=== PATIENT | male | born 1985 | race Caucasian/White ===

== ENCOUNTER 2018-05-24 11:01 | Inpatient (IN) | payer BC ==
[~2018-05-24 11:01] MED LIST: DESFLURANE 15 MIN
[2018-05-24] MEDS: POLYMYXIN/BACITRACIN 1L IRRIG (11:22)
[2018-05-24] MEDS: THROMBIN 5000 UNIT VIAL (11:22)
[2018-05-24] MEDS: BUPIVACAINE 0.5%/EPI (SDV) 30 ML INJ (11:23)
[2018-05-24] MEDS ORDERED: HYDROmorphONE 2 MG/ML SYG (11:47)
[2018-05-24] MEDS ORDERED: MIDAZOLAM 1 MG/ML 2 ML INJ (11:47)
[2018-05-24] MEDS ORDERED: HYDROmorphONE 1 MG/5 ML IV SYRINGE IV ×2 (12:00→16:43)
[2018-05-24] MEDS ORDERED: MEPERIDINE 25 MG INJ IV (12:00)
[2018-05-24] MEDS ORDERED: ONDANSETRON 4 MG INJ IV (12:00)
[2018-05-24] MEDS: CEFAZOLIN 2 GM/50 ML (PMX) 50 ML IVPB (12:00)
[2018-05-24] MEDS: LACTATED RINGER'S 1,000 ML IV* (12:00)
[2018-05-24] MEDS ORDERED: DIPHENHYDRAMINE 50 MG INJ IV (12:00)
[2018-05-24] MEDS ORDERED: CEFAZOLIN 1 GM INJ (12:07)
[2018-05-24] MEDS ORDERED: HYDROCODONE/APAP (10/325) TAB PO (12:30)
[2018-05-24] MEDS ORDERED: DIPHENHYDRAMINE 25 MG CAP PO (12:30)
[2018-05-24] MEDS ORDERED: NALOXONE (0.4 MG/ML) INJ IV (12:30)
[2018-05-24] MEDS ORDERED: BISACODYL 10 MG SUPP PR (12:30)
[2018-05-24] MEDS ORDERED: AL HYDROX/MG HYDROX/SIMETH 30 ML CUP PO (12:30)
[2018-05-24] MEDS ORDERED: ACETAMINOPHEN 325 MG TAB PO (12:30)
[2018-05-24] MEDS ORDERED: CEPASTAT LOZENGE MT (12:30)
[2018-05-24] MEDS ORDERED: METOCLOPRAMIDE 10 MG INJ (12:57)
[2018-05-24] MEDS ORDERED: ROCURONIUM 50 MG INJ ×3 (12:57→13:21)
[2018-05-24] MEDS ORDERED: PROPOFOL 20 ML (12:57)
[2018-05-24] MEDS ORDERED: ONDANSETRON 4 MG INJ (12:57)
[2018-05-24] MEDS: HEPARIN 1000 UNITS/ML 10 ML INJ (13:06)
[2018-05-24] MEDS: CA CHLORIDE (GM) 10% 10 ML INJ (14:09)
[2018-05-24] MEDS ORDERED: THROMBIN 5000 UNIT VIAL (14:09)
[2018-05-24] MEDS: SURGIFOAM POWDER 1 GM KIT (14:14)
[2018-05-24] MEDS ORDERED: GLYCOPYRROLATE 0.4 MG INJ (15:57)
[2018-05-24] MEDS ORDERED: NEOSTIGMINE 3 MG/3 ML SYRINGE (15:57)
[2018-05-24] MEDS ORDERED: MEPERIDINE 25 MG INJ (16:29)
[2018-05-24] MEDS: MEPERIDINE 25 MG INJ IV (16:47)
[2018-05-24] MEDS: DIPHENHYDRAMINE 50 MG INJ IV (16:48)
[2018-05-24] MEDS: MEPERIDINE 25 MG INJ IM (16:56)
[2018-05-24] MEDS: HYDROmorphONE 1 MG/5 ML IV SYRINGE IV ×2 (16:58→17:08)
[2018-05-24] MEDS: HYDROmorphONE 0.2 MG/ML PCA IV (17:05)
[2018-05-24] MEDS: CEFAZOLIN 1 GM/50 ML (PMX) 50 ML IVPB ×2 (17:34→20:56)
[2018-05-24] MEDS: D5W-0.45 NACL + KCL 20 MEQ 1,000 ML IV (20:56)
[2018-05-24] MEDS: LITHIUM CARBONATE 300 MG CAP PO (20:57)
[2018-05-24] MEDS: clonAZEPAM 0.5 MG TAB PO (20:57)
[2018-05-24] MEDS: HYDROmorphONE 0.5 MG/0.5 ML SYG IV (21:09)
[2018-05-25] MEDS: D5W-0.45 NACL + KCL 20 MEQ 1,000 ML IV ×3 (00:30→16:02)
[2018-05-25] MEDS: HYDROmorphONE 0.5 MG/0.5 ML SYG IV ×3 (03:06→08:02)
[2018-05-25 04:57] LABS: ADD MAN DIFF? NO
[2018-05-25 05:09] LABS: BASOPHILS % 0.2 % (0.0-2.0); EOSINOPHILS # 0.1 10^3/ul (0.0-0.5); EOSINOPHILS % 1.3 % (0.0-7.0); HEMATOCRIT 32.7 % (42.0-52.0); LYMPHOCYTES # 1.6 10^3/ul (0.8-2.9); MEAN CORPUSCULAR HGB CONC 33.6 g/dl (32.0-37.0); MEAN CORPUSCULAR VOLUME 89.1 fl (82.0-101.0); MEAN PLATELET VOLUME 10.9 fl (7.4-10.4); MONOCYTE # 0.6 10^3/ul (0.3-0.9); MONOCYTES % 6.7 % (0.0-11.0); NEUTROPHIL # 6.6 10^3/ul (1.6-7.5); NEUTROPHILS % 73.6 % (39.0-77.0); PLATELET COUNT 144 10^3/UL (140-415); RED BLOOD COUNT 3.67 10^6/ul (4.70-6.10); RED CELL DISTRIBUTION WIDTH 12.1 % (11.5-14.5)
[2018-05-25 05:43] LABS: ANION GAP 5 (5-13); BLOOD UREA NITROGEN 10 mg/dl (7-20); CALCIUM 9.4 mg/dl (8.4-10.2); CARBON DIOXIDE 31 mmol/L (21-31); CHLORIDE 104 mmol/L (97-110); CREATININE 0.89 mg/dl (0.61-1.24); Estimated GFR > 60 mL/min (>60); GLUCOSE 104 mg/dl (70-220); MAGNESIUM 1.8 mg/dl (1.7-2.5); POTASSIUM 4.3 mmol/L (3.5-5.1); SODIUM 140 mmol/L (135-144)
[2018-05-25] MEDS: CEFAZOLIN 1 GM/50 ML (PMX) 50 ML IVPB (06:31)
[2018-05-25] MEDS: CYCLOBENZAPRINE 10 MG TAB PO (08:01)
[2018-05-25] MEDS: ONDANSETRON 4 MG INJ IV ×2 (08:34→19:29)
[2018-05-25] MEDS: MODAFINIL 200 MG TAB PO (09:00)
[2018-05-25] MEDS: DOCUSATE SODIUM 100 MG CAP PO ×2 (09:14→20:09)
[2018-05-25] MEDS: LITHIUM CARBONATE 300 MG CAP PO ×2 (09:14→21:19)
[2018-05-25] MEDS: KETOROLAC 30 MG INJ IV (09:15)
[2018-05-25] MEDS: HYDROmorphONE 0.2 MG/ML PCA IV ×2 (10:57→19:52)
[2018-05-25] MEDS: clonAZEPAM 0.5 MG TAB PO (20:09)
[2018-05-26] MEDS: D5W-0.45 NACL + KCL 20 MEQ 1,000 ML IV (01:43)
[2018-05-26] MEDS: HYDROmorphONE 0.2 MG/ML PCA IV (01:47)
[2018-05-26 05:03] LABS: ADD MAN DIFF? NO
[2018-05-26 05:12] LABS: WHITE BLOOD COUNT 11.1 10^3/ul (4.8-10.8)
[2018-05-26 05:12] LABS: BASOPHILS % 0.2 % (0.0-2.0); EOSINOPHILS # 0.1 10^3/ul (0.0-0.5); HEMATOCRIT 35.8 % (42.0-52.0); HEMOGLOBIN 11.7 g/dl (14.0-18.0); LYMPHOCYTES # 1.2 10^3/ul (0.8-2.9); LYMPHOCYTES % 10.5 % (15.0-51.0); MEAN CORPUSCULAR HEMOGLOBIN 29.5 pg (29.0-33.0); MEAN CORPUSCULAR HGB CONC 32.7 g/dl (32.0-37.0); MEAN CORPUSCULAR VOLUME 90.2 fl (82.0-101.0); MEAN PLATELET VOLUME 10.6 fl (7.4-10.4); MONOCYTE # 0.8 10^3/ul (0.3-0.9); MONOCYTES % 7.4 % (0.0-11.0); NEUTROPHILS % 80.5 % (39.0-77.0); PLATELET COUNT 131 10^3/UL (140-415); RED BLOOD COUNT 3.97 10^6/ul (4.70-6.10); RED CELL DISTRIBUTION WIDTH 11.9 % (11.5-14.5)
[2018-05-26 05:36] LABS: ANION GAP 3 (5-13); BLOOD UREA NITROGEN 7 mg/dl (7-20); CALCIUM 9.7 mg/dl (8.4-10.2); CARBON DIOXIDE 29 mmol/L (21-31); CHLORIDE 104 mmol/L (97-110); CREATININE 0.87 mg/dl (0.61-1.24); Estimated GFR > 60 mL/min (>60); GLUCOSE 125 mg/dl (70-220); MAGNESIUM 1.8 mg/dl (1.7-2.5); POTASSIUM 4.1 mmol/L (3.5-5.1); SODIUM 136 mmol/L (135-144)
[2018-05-26] MEDS: MODAFINIL 200 MG TAB PO (09:00)
[2018-05-26] MEDS: LITHIUM CARBONATE 300 MG CAP PO (09:58)
[2018-05-26] MEDS: DOCUSATE SODIUM 100 MG CAP PO (09:59)
[2018-05-26] MEDS: CYCLOBENZAPRINE 10 MG TAB PO ×2 (10:06→14:20)
[2018-05-26] MEDS: HYDROCODONE/APAP (10/325) TAB PO ×2 (10:06→14:20)
[2018-05-26 15:13] LABS: ADD UMIC YES; UR ASCORBIC ACID NEGATIVE (NEGATIVE); UR BACTERIA FEW /HPF (NONE SEEN); UR BILIRUBIN (Dip) NEGATIVE (NEGATIVE); UR BLOOD (Dip) 2+ mg/dL (NEGATIVE); UR CLARITY CLEAR (CLEAR); UR COLOR STRAW (YELLOW); UR GLUCOSE (Dip) NEGATIVE (NEGATIVE); UR KETONES (Dip) NEGATIVE (NEGATIVE); UR LEUKOCYTE ESTERASE (Dip) 2+ Leu/ul (NEGATIVE); UR NITRITE (Dip) NEGATIVE (NEGATIVE); UR RBC 5 /HPF (0-5); UR SPECIFIC GRAVITY (Dip) 1.004 (1.003-1.030); UR TOTAL PROTEIN (Dip) NEGATIVE (NEGATIVE); UR UROBILINOGEN (Dip) NEGATIVE (NEGATIVE); UR WBC 39 /HPF (0-5)
== END 2018-05-26 15:20 | DRG 460 ==
LOC: REC 11:01 → MS1 18:13
PROC: 0SG30AJ Fusion of Lumbosacral Joint with Interbody Fusion Device, Posterior Approach, Anterior Column, Open Approach (ICD-10-PCS; principal; 2018-05-24 11:30)
PROC: 0ST40ZZ Resection of Lumbosacral Disc, Open Approach (ICD-10-PCS; 2018-05-24 11:30)
PROC: 01NB0ZZ Release Lumbar Nerve, Open Approach (ICD-10-PCS; 2018-05-24 11:30)
PROC: 4A11X4G Monitoring of Peripheral Nervous Electrical Activity, Intraoperative, External Approach (ICD-10-PCS; 2018-05-24 11:30)
PROC: 0HB6XZZ Excision of Back Skin, External Approach (ICD-10-PCS; 2018-05-24 11:30)
DX: M51.17 Intervertebral disc disorders with radiculopathy, lumbosacral region (principal); M48.07 Spinal stenosis, lumbosacral region; L90.5 Scar conditions and fibrosis of skin; L91.0 Hypertrophic scar; F31.9 Bipolar disorder, unspecified; F41.9 Anxiety disorder, unspecified
CPT/HCPCS: 72100; 80048; 81001; 83735; 85025; 86999; 87086; 88304; 97116; 97162; 97530

== ENCOUNTER 2018-05-26 15:27 | Inpatient (IN) | payer BC ==
[2018-05-26] MEDS ORDERED: CEPASTAT LOZENGE MT (16:00)
[2018-05-26] MEDS ORDERED: DIPHENHYDRAMINE 50 MG INJ IV (16:00)
[2018-05-26] MEDS ORDERED: NALOXONE (0.4 MG/ML) INJ IV (16:00)
[2018-05-26] MEDS ORDERED: ONDANSETRON 4 MG INJ IV (16:00)
[2018-05-26 16:35] LABS: ADD UMIC NO; UR ASCORBIC ACID NEGATIVE (NEGATIVE); UR BILIRUBIN (Dip) NEGATIVE (NEGATIVE); UR BLOOD (Dip) NEGATIVE (NEGATIVE); UR CLARITY CLEAR (CLEAR); UR COLOR STRAW (YELLOW); UR GLUCOSE (Dip) NEGATIVE (NEGATIVE); UR KETONES (Dip) NEGATIVE (NEGATIVE); UR LEUKOCYTE ESTERASE (Dip) NEGATIVE Leu/ul (NEGATIVE); UR NITRITE (Dip) NEGATIVE (NEGATIVE); UR SPECIFIC GRAVITY (Dip) 1.003 (1.003-1.030); UR TOTAL PROTEIN (Dip) NEGATIVE (NEGATIVE); UR UROBILINOGEN (Dip) NEGATIVE (NEGATIVE)
[2018-05-26] MEDS: HYDROCODONE/APAP (10/325) TAB PO ×2 (16:40→20:55)
[2018-05-26] MEDS: CYCLOBENZAPRINE 10 MG TAB PO (16:42)
[2018-05-26] MEDS: LITHIUM CARBONATE 300 MG CAP PO (20:54)
[2018-05-26] MEDS: DOCUSATE SODIUM 100 MG CAP PO (20:55)
[2018-05-26] MEDS: SENNA TAB PO (20:55)
[2018-05-26] MEDS: clonAZEPAM 0.5 MG TAB PO (22:06)
[2018-05-27] MEDS: HYDROCODONE/APAP (10/325) TAB PO ×2 (01:44→07:42)
[2018-05-27] MEDS: CYCLOBENZAPRINE 10 MG TAB PO ×3 (01:44→16:31)
[2018-05-27 07:24] LABS: ADD MAN DIFF? NO
[2018-05-27 07:26] LABS: WHITE BLOOD COUNT 11.4 10^3/ul (4.8-10.8)
[2018-05-27 07:26] LABS: BASOPHILS % 0.3 % (0.0-2.0); EOSINOPHILS # 0.1 10^3/ul (0.0-0.5); HEMATOCRIT 35.6 % (42.0-52.0); HEMOGLOBIN 11.7 g/dl (14.0-18.0); LYMPHOCYTES # 1.4 10^3/ul (0.8-2.9); LYMPHOCYTES % 12.2 % (15.0-51.0); MEAN CORPUSCULAR HEMOGLOBIN 29.6 pg (29.0-33.0); MEAN CORPUSCULAR HGB CONC 32.9 g/dl (32.0-37.0); MEAN CORPUSCULAR VOLUME 90.1 fl (82.0-101.0); MEAN PLATELET VOLUME 10.3 fl (7.4-10.4); MONOCYTE # 0.7 10^3/ul (0.3-0.9); MONOCYTES % 6.2 % (0.0-11.0); NEUTROPHIL # 9.2 10^3/ul (1.6-7.5); PLATELET COUNT 136 10^3/UL (140-415); POSITIVE DIFF @See below; RED BLOOD COUNT 3.95 10^6/ul (4.70-6.10); RED CELL DISTRIBUTION WIDTH 11.8 % (11.5-14.5)
[2018-05-27 07:44] LABS: ALANINE AMINOTRANSFERASE 26 IU/L (13-69); ALBUMIN 3.9 g/dl (3.3-4.9); ALKALINE PHOSPHATASE 84 IU/L (42-121); ANION GAP 6 (5-13); ASPARTATE AMINO TRANSFERASE 25 IU/L (15-46); BILIRUBIN,INDIRECT 0.6 mg/dl (0-1.1); BILIRUBIN,TOTAL 0.6 mg/dl (0.2-1.3); BLOOD UREA NITROGEN 9 mg/dl (7-20); CALCIUM 9.9 mg/dl (8.4-10.2); CARBON DIOXIDE 28 mmol/L (21-31); CHLORIDE 102 mmol/L (97-110); CREATININE 0.92 mg/dl (0.61-1.24); Estimated GFR > 60 mL/min (>60); GLUCOSE 91 mg/dl (70-220); SODIUM 136 mmol/L (135-144); TOTAL PROTEIN 6.9 g/dl (6.1-8.1)
[2018-05-27] MEDS: MODAFINIL 200 MG TAB PO (09:31)
[2018-05-27] MEDS: DOCUSATE SODIUM 100 MG CAP PO ×2 (09:31→21:00)
[2018-05-27] MEDS: LITHIUM CARBONATE 300 MG CAP PO ×3 (09:31→20:34)
[2018-05-27 10:22] LABS: LITHIUM 1.5 mmol/L (0.6-1.3)
[2018-05-27] MEDS: OXYCODONE/ACETAMINOPHEN (10/325) TAB PO ×3 (12:55→20:34)
[2018-05-27] MEDS: clonAZEPAM 0.5 MG TAB PO (20:38)
[2018-05-27] MEDS: SENNA TAB PO (21:00)
[2018-05-28] MEDS: OXYCODONE/ACETAMINOPHEN (10/325) TAB PO ×3 (06:26→18:28)
[2018-05-28] MEDS: CYCLOBENZAPRINE 10 MG TAB PO ×3 (06:26→18:27)
[2018-05-28] MEDS: DOCUSATE SODIUM 100 MG CAP PO ×2 (09:05→20:13)
[2018-05-28] MEDS: LITHIUM CARBONATE 300 MG CAP PO ×2 (09:06→20:12)
[2018-05-28] MEDS: MODAFINIL 200 MG TAB PO (09:08)
[2018-05-28] MEDS: clonAZEPAM 0.5 MG TAB PO (20:12)
[2018-05-28] MEDS: SENNA TAB PO (20:12)
[2018-05-29] MEDS: MAGNESIUM HYDROXIDE 30ML CUP PO (06:45)
[2018-05-29 07:15] LABS: ADD MAN DIFF? NO
[2018-05-29 07:23] LABS: WHITE BLOOD COUNT 6.6 10^3/ul (4.8-10.8)
[2018-05-29 07:23] LABS: BASOPHILS % 0.2 % (0.0-2.0); EOSINOPHILS # 0.2 10^3/ul (0.0-0.5); EOSINOPHILS % 2.9 % (0.0-7.0); HEMATOCRIT 34.6 % (42.0-52.0); HEMOGLOBIN 11.5 g/dl (14.0-18.0); LYMPHOCYTES # 1.5 10^3/ul (0.8-2.9); LYMPHOCYTES % 21.9 % (15.0-51.0); MEAN CORPUSCULAR HEMOGLOBIN 29.1 pg (29.0-33.0); MEAN CORPUSCULAR HGB CONC 33.2 g/dl (32.0-37.0); MEAN CORPUSCULAR VOLUME 87.6 fl (82.0-101.0); MEAN PLATELET VOLUME 10.5 fl (7.4-10.4); MONOCYTE # 0.5 10^3/ul (0.3-0.9); MONOCYTES % 7.7 % (0.0-11.0); NEUTROPHIL # 4.4 10^3/ul (1.6-7.5); PLATELET COUNT 206 10^3/UL (140-415); RED BLOOD COUNT 3.95 10^6/ul (4.70-6.10); RED CELL DISTRIBUTION WIDTH 11.4 % (11.5-14.5)
[2018-05-29] MEDS: OXYCODONE/ACETAMINOPHEN (10/325) TAB PO ×3 (07:50→20:50)
[2018-05-29] MEDS: CYCLOBENZAPRINE 10 MG TAB PO ×3 (07:50→20:50)
[2018-05-29 07:51] LABS: ANION GAP 12 (5-13); BLOOD UREA NITROGEN 11 mg/dl (7-20); CALCIUM 10.2 mg/dl (8.4-10.2); CARBON DIOXIDE 30 mmol/L (21-31); CHLORIDE 99 mmol/L (97-110); CREATININE 0.87 mg/dl (0.61-1.24); Estimated GFR > 60 mL/min (>60); GLUCOSE 86 mg/dl (70-220); SODIUM 141 mmol/L (135-144)
[2018-05-29] MEDS: LITHIUM CARBONATE 300 MG CAP PO ×2 (08:07→20:49)
[2018-05-29] MEDS: DOCUSATE SODIUM 100 MG CAP PO ×2 (08:08→21:00)
[2018-05-29] MEDS: MODAFINIL 200 MG TAB PO (08:08)
[2018-05-29] MEDS: LACTULOSE 30ML CUP PO (13:11)
[2018-05-29] MEDS: clonAZEPAM 0.5 MG TAB PO (20:49)
[2018-05-29] MEDS: SENNA TAB PO (21:00)
[2018-05-30] MEDS: OXYCODONE/ACETAMINOPHEN (10/325) TAB PO ×4 (04:59→21:14)
[2018-05-30] MEDS: MAGNESIUM HYDROXIDE 30ML CUP PO (08:13)
[2018-05-30] MEDS: LITHIUM CARBONATE 300 MG CAP PO ×2 (08:14→21:30)
[2018-05-30] MEDS: MODAFINIL 200 MG TAB PO (08:14)
[2018-05-30] MEDS: DOCUSATE SODIUM 100 MG CAP PO ×2 (08:14→21:14)
[2018-05-30] MEDS: DOCOSANOL 2 GM CREAM TOP ×2 (13:33→21:14)
[2018-05-30] MEDS: CYCLOBENZAPRINE 10 MG TAB PO ×2 (15:43→21:13)
[2018-05-30] MEDS: clonAZEPAM 0.5 MG TAB PO (21:13)
[2018-05-30] MEDS: SENNA TAB PO (21:14)
[2018-05-31 06:41] LABS: ADD MAN DIFF? NO
[2018-05-31 06:43] LABS: WHITE BLOOD COUNT 5.8 10^3/ul (4.8-10.8)
[2018-05-31 06:43] LABS: BASOPHILS % 0.3 % (0.0-2.0); EOSINOPHILS # 0.3 10^3/ul (0.0-0.5); HEMATOCRIT 34.1 % (42.0-52.0); HEMOGLOBIN 11.1 g/dl (14.0-18.0); LYMPHOCYTES # 2.1 10^3/ul (0.8-2.9); LYMPHOCYTES % 35.4 % (15.0-51.0); MEAN CORPUSCULAR HEMOGLOBIN 29.1 pg (29.0-33.0); MEAN CORPUSCULAR HGB CONC 32.6 g/dl (32.0-37.0); MEAN CORPUSCULAR VOLUME 89.5 fl (82.0-101.0); MEAN PLATELET VOLUME 9.8 fl (7.4-10.4); MONOCYTE # 0.5 10^3/ul (0.3-0.9); MONOCYTES % 7.7 % (0.0-11.0); NEUTROPHILS % 51.3 % (39.0-77.0); PLATELET COUNT 239 10^3/UL (140-415); RED BLOOD COUNT 3.81 10^6/ul (4.70-6.10); RED CELL DISTRIBUTION WIDTH 11.7 % (11.5-14.5)
[2018-05-31 07:04] LABS: ANION GAP 9 (5-13); BLOOD UREA NITROGEN 14 mg/dl (7-20); CALCIUM 10.5 mg/dl (8.4-10.2); CARBON DIOXIDE 31 mmol/L (21-31); CHLORIDE 102 mmol/L (97-110); CREATININE 0.88 mg/dl (0.61-1.24); Estimated GFR > 60 mL/min (>60); GLUCOSE 86 mg/dl (70-220); MAGNESIUM 2.3 mg/dl (1.7-2.5); PHOSPHORUS 4.5 mg/dl (2.5-4.9); SODIUM 142 mmol/L (135-144)
[2018-05-31 07:29] LABS: LITHIUM 1.2 mmol/L (0.6-1.3)
[2018-05-31] MEDS: OXYCODONE/ACETAMINOPHEN (10/325) TAB PO ×3 (07:59→21:30)
[2018-05-31] MEDS: LACTULOSE 30ML CUP PO ×2 (07:59→09:59)
[2018-05-31] MEDS: DOCUSATE SODIUM 100 MG CAP PO ×2 (08:30→21:29)
[2018-05-31] MEDS: LITHIUM CARBONATE 300 MG CAP PO ×2 (08:30→21:29)
[2018-05-31] MEDS: DOCOSANOL 2 GM CREAM TOP ×3 (08:30→22:20)
[2018-05-31] MEDS: MODAFINIL 200 MG TAB PO (08:30)
[2018-05-31] MEDS: BISACODYL 10 MG SUPP PR (09:59)
[2018-05-31] MEDS: CYCLOBENZAPRINE 10 MG TAB PO ×2 (12:36→21:29)
[2018-05-31] MEDS ORDERED: LITHIUM CARBONATE 300 MG CAP PO (21:00)
[2018-05-31] MEDS: SENNA TAB PO (21:00)
[2018-05-31] MEDS: clonAZEPAM 0.5 MG TAB PO (21:31)
[2018-06-01 06:45] LABS: ADD MAN DIFF? NO
[2018-06-01 06:49] LABS: BASOPHILS % 0.4 % (0.0-2.0); EOSINOPHILS # 0.3 10^3/ul (0.0-0.5); EOSINOPHILS % 4.3 % (0.0-7.0); HEMATOCRIT 38.5 % (42.0-52.0); HEMOGLOBIN 12.4 g/dl (14.0-18.0); LYMPHOCYTES # 2.4 10^3/ul (0.8-2.9); LYMPHOCYTES % 33.1 % (15.0-51.0); MEAN CORPUSCULAR HEMOGLOBIN 28.8 pg (29.0-33.0); MEAN CORPUSCULAR HGB CONC 32.2 g/dl (32.0-37.0); MEAN CORPUSCULAR VOLUME 89.3 fl (82.0-101.0); MEAN PLATELET VOLUME 9.5 fl (7.4-10.4); MONOCYTE # 0.5 10^3/ul (0.3-0.9); MONOCYTES % 6.5 % (0.0-11.0); NEUTROPHILS % 55.4 % (39.0-77.0); PLATELET COUNT 335 10^3/UL (140-415); RED BLOOD COUNT 4.31 10^6/ul (4.70-6.10); RED CELL DISTRIBUTION WIDTH 11.6 % (11.5-14.5)
[2018-06-01 06:49] LABS: WHITE BLOOD COUNT 7.3 10^3/ul (4.8-10.8)
[2018-06-01 07:16] LABS: ANION GAP 11 (5-13); BLOOD UREA NITROGEN 17 mg/dl (7-20); CARBON DIOXIDE 27 mmol/L (21-31); CHLORIDE 104 mmol/L (97-110); Estimated GFR > 60 mL/min (>60); GLUCOSE 89 mg/dl (70-220); MAGNESIUM 2.2 mg/dl (1.7-2.5); PHOSPHORUS 4.2 mg/dl (2.5-4.9); POTASSIUM 3.7 mmol/L (3.5-5.1); SODIUM 142 mmol/L (135-144)
[2018-06-01] MEDS: MODAFINIL 200 MG TAB PO (09:19)
[2018-06-01] MEDS: DOCUSATE SODIUM 100 MG CAP PO ×2 (09:19→20:15)
[2018-06-01] MEDS: LITHIUM CARBONATE 300 MG CAP PO ×2 (09:20→20:16)
[2018-06-01] MEDS: DOCOSANOL 2 GM CREAM TOP ×3 (09:20→20:21)
[2018-06-01 09:34] LABS: MAGNESIUM 2.2 mg/dl (1.7-2.5)
[2018-06-01 09:37] LABS: PHOSPHORUS 3.9 mg/dl (2.5-4.9)
[2018-06-01 12:43] LABS: SODIUM,URINE RANDOM 25 mmol/L (30-90)
[2018-06-01] MEDS ORDERED: HYDROCODONE/APAP (5/325) TAB PO (13:20)
[2018-06-01] MEDS: HYDROCODONE/APAP (5/325) TAB PO (13:31)
[2018-06-01] MEDS: SOD CHLORIDE 0.9% 1,000 ML IV ×2 (13:40→22:20)
[2018-06-01] MEDS: clonAZEPAM 0.5 MG TAB PO (17:17)
[2018-06-01] MEDS: SENNA TAB PO (20:15)
[2018-06-01] MEDS: CARISOPRODOL 350 MG TAB PO (21:56)
[2018-06-02] MEDS: DIPHENHYDRAMINE 25 MG CAP PO (00:34)
[2018-06-02] MEDS: ACETAMINOPHEN 325 MG TAB PO (00:34)
[2018-06-02] MEDS: SOD CHLORIDE 0.9% 1,000 ML IV (06:44)
[2018-06-02 07:41] LABS: ANION GAP 11 (5-13); BLOOD UREA NITROGEN 16 mg/dl (7-20); CALCIUM 10.1 mg/dl (8.4-10.2); CARBON DIOXIDE 23 mmol/L (21-31); CHLORIDE 108 mmol/L (97-110); CREATININE 0.83 mg/dl (0.61-1.24); Estimated GFR > 60 mL/min (>60); GLUCOSE 86 mg/dl (70-220); MAGNESIUM 2.2 mg/dl (1.7-2.5); PHOSPHORUS 2.7 mg/dl (2.5-4.9); POTASSIUM 3.4 mmol/L (3.5-5.1); SODIUM 142 mmol/L (135-144)
[2018-06-02] MEDS: DOCUSATE SODIUM 100 MG CAP PO ×2 (08:38→20:50)
[2018-06-02] MEDS: MODAFINIL 200 MG TAB PO (08:38)
[2018-06-02] MEDS: DOCOSANOL 2 GM CREAM TOP ×3 (08:39→20:50)
[2018-06-02] MEDS: LITHIUM CARBONATE 300 MG CAP PO ×2 (08:39→20:41)
[2018-06-02] MEDS: BISACODYL 10 MG SUPP PR (12:44)
[2018-06-02] MEDS: BACLOFEN 10 MG TAB PO ×2 (12:44→20:41)
[2018-06-02] MEDS: POTASSIUM CHLORIDE (SR) 10 MEQ TAB PO (15:00)
[2018-06-02 18:37] LABS: PTH CALCIUM 10.2 mg/dL (8.6-10.3)
[2018-06-02] MEDS: MELATONIN 5 MG TABLET PO (20:42)
[2018-06-02] MEDS: clonAZEPAM 0.5 MG TAB PO (20:46)
[2018-06-02] MEDS: SENNA TAB PO (20:50)
[2018-06-03] MEDS: BACLOFEN 10 MG TAB PO ×4 (03:31→20:14)
[2018-06-03 03:43] LABS: ADD MAN DIFF? NO
[2018-06-03 04:06] LABS: ALANINE AMINOTRANSFERASE 31 IU/L (13-69); ALBUMIN 4.4 g/dl (3.3-4.9); ALBUMIN/GLOBULIN RATIO 1.41; ALKALINE PHOSPHATASE 87 IU/L (42-121); ANION GAP 13 (5-13); ASPARTATE AMINO TRANSFERASE 31 IU/L (15-46); BILIRUBIN,INDIRECT 0.4 mg/dl (0-1.1); BILIRUBIN,TOTAL 0.4 mg/dl (0.2-1.3); BLOOD UREA NITROGEN 14 mg/dl (7-20); CARBON DIOXIDE 22 mmol/L (21-31); CHLORIDE 111 mmol/L (97-110); CREATININE 0.84 mg/dl (0.61-1.24); Estimated GFR > 60 mL/min (>60); GLUCOSE 95 mg/dl (70-220); POTASSIUM 3.4 mmol/L (3.5-5.1); SODIUM 146 mmol/L (135-144); TOTAL PROTEIN 7.5 g/dl (6.1-8.1)
[2018-06-03 04:07] LABS: ADD UMIC NO; UR ASCORBIC ACID NEGATIVE (NEGATIVE); UR BILIRUBIN (Dip) NEGATIVE (NEGATIVE); UR BLOOD (Dip) NEGATIVE (NEGATIVE); UR CLARITY CLEAR (CLEAR); UR COLOR STRAW (YELLOW); UR GLUCOSE (Dip) NEGATIVE (NEGATIVE); UR KETONES (Dip) NEGATIVE (NEGATIVE); UR LEUKOCYTE ESTERASE (Dip) NEGATIVE Leu/ul (NEGATIVE); UR NITRITE (Dip) NEGATIVE (NEGATIVE); UR SPECIFIC GRAVITY (Dip) 1.004 (1.003-1.030); UR TOTAL PROTEIN (Dip) NEGATIVE (NEGATIVE); UR UROBILINOGEN (Dip) NEGATIVE (NEGATIVE)
[2018-06-03 04:08] LABS: BASOPHILS % 0.3 % (0.0-2.0); EOSINOPHILS # 0.1 10^3/ul (0.0-0.5); EOSINOPHILS % 1.3 % (0.0-7.0); HEMATOCRIT 34.2 % (42.0-52.0); HEMOGLOBIN 11.5 g/dl (14.0-18.0); LYMPHOCYTES # 2.5 10^3/ul (0.8-2.9); MEAN CORPUSCULAR HEMOGLOBIN 29.2 pg (29.0-33.0); MEAN CORPUSCULAR HGB CONC 33.6 g/dl (32.0-37.0); MEAN CORPUSCULAR VOLUME 86.8 fl (82.0-101.0); MEAN PLATELET VOLUME 9.5 fl (7.4-10.4); MONOCYTE # 0.6 10^3/ul (0.3-0.9); MONOCYTES % 6.8 % (0.0-11.0); NEUTROPHILS % 64.3 % (39.0-77.0); PLATELET COUNT 373 10^3/UL (140-415); RED BLOOD COUNT 3.94 10^6/ul (4.70-6.10); RED CELL DISTRIBUTION WIDTH 11.6 % (11.5-14.5)
[2018-06-03 04:08] LABS: WHITE BLOOD COUNT 9.4 10^3/ul (4.8-10.8)
[2018-06-03] MEDS: POTASSIUM CHLORIDE (SR) 20 MEQ TAB PO (06:39)
[2018-06-03] MEDS: GABAPENTIN 100 MG CAP PO ×2 (08:11→20:15)
[2018-06-03] MEDS: MODAFINIL 200 MG TAB PO (08:12)
[2018-06-03] MEDS: LIDOCAINE 5% PATCH TD (08:12)
[2018-06-03] MEDS: DOCOSANOL 2 GM CREAM TOP ×3 (08:12→20:14)
[2018-06-03] MEDS: LITHIUM CARBONATE 300 MG CAP PO ×2 (08:12→20:15)
[2018-06-03] MEDS: DOCUSATE SODIUM 100 MG CAP PO ×2 (08:13→20:14)
[2018-06-03] MEDS: IBUPROFEN 200 MG TAB PO ×2 (12:01→19:46)
[2018-06-03] MEDS: HYDROCODONE/APAP (5/325) TAB PO ×3 (12:59→23:06)
[2018-06-03] MEDS: LORAZEPAM 0.5 MG TAB PO (15:19)
[2018-06-03] MEDS: clonAZEPAM 0.5 MG TAB PO (20:14)
[2018-06-03] MEDS: SENNA TAB PO ×2 (20:18→20:54)
[2018-06-03] MEDS: LACTULOSE 30ML CUP PO (20:50)
[2018-06-03] MEDS: BISACODYL 10 MG SUPP PR (21:19)
[2018-06-04] MEDS: HYDROCODONE/APAP (5/325) TAB PO ×5 (04:49→13:30)
[2018-06-04] MEDS: AL HYDROX/MG HYDROX/SIMETH 30 ML CUP PO (07:49)
[2018-06-04] MEDS: MODAFINIL 200 MG TAB PO (08:51)
[2018-06-04] MEDS: BACLOFEN 10 MG TAB PO ×2 (08:51→12:22)
[2018-06-04] MEDS: GABAPENTIN 100 MG CAP PO (08:52)
[2018-06-04] MEDS: DOCUSATE SODIUM 100 MG CAP PO (08:52)
[2018-06-04] MEDS: LITHIUM CARBONATE 300 MG CAP PO (08:52)
[2018-06-04] MEDS: LIDOCAINE 5% PATCH TD (08:55)
[2018-06-04] MEDS: DOCOSANOL 2 GM CREAM TOP (10:00)
[2018-06-04] MEDS: SOD CHLORIDE 0.9% 1,000 ML IV (10:30)
[2018-06-05 16:12] LABS: PTH INTACT 10 pg/mL (14-64)
== END 2018-06-04 13:42 | disposition short-term general hospital (02) | DRG 560 ==
LOC: VRC 05-28 13:24 → 5EC 06-04 13:25 → VRC 15:27
PROC: F07Z5ZZ Bed Mobility Treatment (ICD-10-PCS; principal; 2018-05-27)
PROC: F07Z8ZZ Transfer Training Treatment (ICD-10-PCS; 2018-05-27)
PROC: F07Z9ZZ Gait Training/Functional Ambulation Treatment (ICD-10-PCS; 2018-05-27)
PROC: F08Z2ZZ Grooming/Personal Hygiene Treatment (ICD-10-PCS; 2018-05-27)
PROC: F08Z1ZZ Dressing Techniques Treatment (ICD-10-PCS; 2018-05-27)
PROC: F08Z0ZZ Bathing/Showering Techniques Treatment (ICD-10-PCS; 2018-05-27)
DX: Z47.89 Encounter for other orthopedic aftercare (principal); F31.10 Bipolar disorder, current episode manic without psychotic features, unspecified; K59.00 Constipation, unspecified; E83.52 Hypercalcemia; R07.81 Pleurodynia; R10.9 Unspecified abdominal pain; R45.1 Restlessness and agitation; Z98.1 Arthrodesis status
CPT/HCPCS: 71045; 80048; 80053; 80178; 81003; 82306; 83735; 83970; 84100; 84300; 84443; 85025; 87081; 87086; 93971; 97110; 97112; 97116; 97163; 97167; 97530; 97535

== ENCOUNTER 2018-06-04 14:25 | Inpatient (IN) | payer BC ==
[2018-06-04] MEDS: clonAZEPAM 0.5 MG TAB PO ×2 (16:55→21:07)
[2018-06-04] MEDS ORDERED: DOCUSATE SODIUM 100 MG CAP PO (17:00)
[2018-06-04] MEDS ORDERED: MAGNESIUM HYDROXIDE 30ML CUP PO (17:00)
[2018-06-04] MEDS ORDERED: BISACODYL 10 MG SUPP PR (17:00)
[2018-06-04] MEDS ORDERED: NACL 0.9% 3 ML SYG IV (17:00)
[2018-06-04] MEDS ORDERED: ACETAMINOPHEN 325 MG TAB PO (17:00)
[2018-06-04] MEDS: HYDROCODONE/APAP (10/325) TAB PO ×2 (17:03→22:52)
[2018-06-04] MEDS: LITHIUM CARBONATE 300 MG CAP PO (21:06)
[2018-06-04] MEDS: CARISOPRODOL 350 MG TAB PO (21:59)
[2018-06-05] MEDS: HYDROCODONE/APAP (10/325) TAB PO ×3 (01:50→16:25)
[2018-06-05 08:36] LABS: ADD MAN DIFF? NO
[2018-06-05 08:40] LABS: BASOPHIL # 0.1 10^3/ul (0.0-0.1); BASOPHILS % 0.5 % (0.0-2.0); EOSINOPHILS # 0.2 10^3/ul (0.0-0.5); EOSINOPHILS % 1.9 % (0.0-7.0); HEMATOCRIT 36.4 % (42.0-52.0); HEMOGLOBIN 12.1 g/dl (14.0-18.0); LYMPHOCYTES # 2.1 10^3/ul (0.8-2.9); LYMPHOCYTES % 19.2 % (15.0-51.0); MEAN CORPUSCULAR HEMOGLOBIN 28.8 pg (29.0-33.0); MEAN CORPUSCULAR HGB CONC 33.2 g/dl (32.0-37.0); MEAN CORPUSCULAR VOLUME 86.7 fl (82.0-101.0); MEAN PLATELET VOLUME 9.5 fl (7.4-10.4); MONOCYTE # 0.5 10^3/ul (0.3-0.9); MONOCYTES % 4.5 % (0.0-11.0); NEUTROPHIL # 8.1 10^3/ul (1.6-7.5); NEUTROPHILS % 73.4 % (39.0-77.0); PLATELET COUNT 361 10^3/UL (140-415); RED CELL DISTRIBUTION WIDTH 11.9 % (11.5-14.5)
[2018-06-05] MEDS: ENOXAPARIN 40 MG/0.4 ML SYG SC (09:00)
[2018-06-05 09:03] LABS: ALANINE AMINOTRANSFERASE 29 IU/L (13-69); ALBUMIN 4.5 g/dl (3.3-4.9); ALKALINE PHOSPHATASE 95 IU/L (42-121); ANION GAP 17 (5-13); ASPARTATE AMINO TRANSFERASE 22 IU/L (15-46); BILIRUBIN,INDIRECT 0.4 mg/dl (0-1.1); BILIRUBIN,TOTAL 0.4 mg/dl (0.2-1.3); BLOOD UREA NITROGEN 11 mg/dl (7-20); CALCIUM 10.6 mg/dl (8.4-10.2); CARBON DIOXIDE 20 mmol/L (21-31); CHLORIDE 107 mmol/L (97-110); CREATININE 0.84 mg/dl (0.61-1.24); Estimated GFR > 60 mL/min (>60); GLUCOSE 84 mg/dl (70-220); POTASSIUM 3.5 mmol/L (3.5-5.1); SODIUM 144 mmol/L (135-144); TOTAL PROTEIN 7.7 g/dl (6.1-8.1)
[2018-06-05] MEDS: LITHIUM CARBONATE 300 MG CAP PO ×2 (09:27→21:29)
[2018-06-05] MEDS: clonAZEPAM 0.5 MG TAB PO ×3 (09:28→21:29)
[2018-06-05] MEDS: MODAFINIL 200 MG TAB PO (10:38)
[2018-06-06] MEDS: clonAZEPAM 0.5 MG TAB PO ×2 (04:52→11:33)
[2018-06-06] MEDS: HYDROCODONE/APAP (10/325) TAB PO ×2 (04:59→11:34)
[2018-06-06] MEDS: MODAFINIL 200 MG TAB PO (10:08)
[2018-06-06] MEDS: LITHIUM CARBONATE 300 MG CAP PO (10:08)
[2018-06-06] MEDS ORDERED: HALOPERIDOL 5 MG INJ IM (13:30)
[2018-06-06 14:23] LABS: ADD MAN DIFF? NO
[2018-06-06 14:25] LABS: BASOPHILS % 0.3 % (0.0-2.0); EOSINOPHILS # 0.2 10^3/ul (0.0-0.5); EOSINOPHILS % 1.4 % (0.0-7.0); HEMATOCRIT 37.9 % (42.0-52.0); HEMOGLOBIN 12.7 g/dl (14.0-18.0); LYMPHOCYTES # 2.3 10^3/ul (0.8-2.9); LYMPHOCYTES % 16.4 % (15.0-51.0); MEAN CORPUSCULAR HGB CONC 33.5 g/dl (32.0-37.0); MEAN CORPUSCULAR VOLUME 86.5 fl (82.0-101.0); MEAN PLATELET VOLUME 9.1 fl (7.4-10.4); MONOCYTE # 0.6 10^3/ul (0.3-0.9); MONOCYTES % 4.6 % (0.0-11.0); NEUTROPHIL # 10.6 10^3/ul (1.6-7.5); PLATELET COUNT 430 10^3/UL (140-415); RED BLOOD COUNT 4.38 10^6/ul (4.70-6.10); RED CELL DISTRIBUTION WIDTH 11.8 % (11.5-14.5)
[2018-06-06 14:25] LABS: WHITE BLOOD COUNT 13.8 10^3/ul (4.8-10.8)
[2018-06-06 14:42] LABS: ALANINE AMINOTRANSFERASE 21 IU/L (13-69); ALBUMIN 4.8 g/dl (3.3-4.9); ALBUMIN/GLOBULIN RATIO 1.65; ALKALINE PHOSPHATASE 110 IU/L (42-121); ANION GAP 13 (5-13); ASPARTATE AMINO TRANSFERASE 24 IU/L (15-46); BILIRUBIN,INDIRECT 0.3 mg/dl (0-1.1); BILIRUBIN,TOTAL 0.3 mg/dl (0.2-1.3); BLOOD UREA NITROGEN 11 mg/dl (7-20); CALCIUM 10.9 mg/dl (8.4-10.2); CARBON DIOXIDE 20 mmol/L (21-31); CHLORIDE 106 mmol/L (97-110); CREATININE 0.88 mg/dl (0.61-1.24); Estimated GFR > 60 mL/min (>60); GLUCOSE 79 mg/dl (70-220); SODIUM 139 mmol/L (135-144); TOTAL PROTEIN 7.7 g/dl (6.1-8.1)
[2018-06-06 17:02] LABS: LITHIUM 1.3 mmol/L (0.6-1.3)
== END 2018-06-06 19:00 | DRG 885 ==
LOC: 5EC 14:25
DX: F31.5 Bipolar disorder, current episode depressed, severe, with psychotic features (principal); Z98.1 Arthrodesis status
CPT/HCPCS: 80053; 80178; 85025; 97161